=== PATIENT | male | born 1940 | race Caucasian/White ===

== ENCOUNTER 2016-07-02 11:19 | Emergency (ER) | payer MEDICARE ==
[2016-07-02] MEDS ORDERED: XYLOCAINE 1% HCL 20 ML MDV IJ ONE (11:39)
[2016-07-02] MEDS ORDERED: Adacel Vial IM ONE ×2 (11:44→11:50)
[2016-07-02] MEDS ORDERED: XYLOCAINE 1% HCL 20 ML MDV ONE (11:46)
--- NOTE | 2016-07-02 11:46 | ERPHSYRPT ---
- History of Present Illness Time Seen by Provider: 07/02/16 11:40 Source: patient Exam Limitations: no limitations Patient Subjective Stated Complaint: fell while trying to stop a moving golf cart. hit face on concrete. Triage Nursing Assessment: to room per w/c. skin w/d, color normal, resp easy. bruising and swelling noted to right side of face. lac to upper right lip with swelling and bleeding. denies loc Physician History: 76-year-old white female with history of coronary artery disease, GI bleed, hypercholesterolemia, high blood pressure, myocardial infarction, CHF Arrives with complaints that he was trying to stop a runaway golf cart he fell struck his head and face on concrete. He states he doesn't think he was knocked out but he is not sure. He currently denies neck pain he complains of a bruising and pain in the right side of his face patient also with a laceration to his upper lip. Past medical history includes coronary artery disease, hypercholesterolemia, high blood pressure, myocardial infarction, congestive heart failure, prostate problems. Past surgical history includes cardiac catheterization, appendectomy Occurred: just prior to arrival (45 minutes prior to arrival) Severity: moderate Head Injury Location: temporal (right temporal and right zygoma) Method of Injury: other (fell while chasing a runaway golf c) Loss of Consciousness: unsure Associated Symptoms: No nausea, No vomiting, No abdominal pain, No shortness of breath, No heartburn, No diaphoresis, No cough, No chills, No chest pain, No fever, No headaches, No loss of appetite (Mina Reese), No malaise, No rash, No syncope, No seizure, No weakness Allergies/Adverse Reactions: Penicillins Allergy (Mild, Verified 07/02/16 11:26) Rash Home Medications: Ascorbic Acid [Vitamin C] 1,000 mg PO DAILY 01/14/12 [History] Aspirin EC 325 mg [Ecotrin 325 MG] 325 mg PO DAILY 01/14/12 [History] Dutasteride 0.5 MG [Avodart 0.5 MG] 0.5 mg PO DAILY 01/14/12 [History] Multivitamin [Multivitamins] 1 each PO DAILY 01/14/12 [History] [place]-3 Fatty Acids/Fish Oil [Fish Oil 1,000 mg Capsule] 2,700 mg PO DAILY 01/14/12 [History] Simvastatin 40 mg [Zocor 40 mg] 40 mg PO HS 01/14/12 [History] Tamsulosin HCl 0.4 mg [Flomax 0.4 MG] 0.4 mg PO DAILY 01/14/12 [History] Ranolazine [Ranexa] 500 mg PO DAILY 08/22/14 [History] Buspirone HCl 5 mg [Buspar 5 mg] 5 mg PO BID 07/02/16 [History] Hx Tetanus, Diphtheria Vaccination/Date Given: No Hx Influenza Vaccination/Date Given: Yes Hx Pneumococcal Vaccination/Date Given: Yes - Review of Systems Constitutional: Other (pain right zygoma, right supraorbital region laterally) , No Fever, No Chills Eyes: No Symptoms, No Discharge, No Eye Pain, No Eye Redness, No Itchy, No Photophobia, No Tearing, No Vision Changes, No Double Vision, No Foreign Body Sensation, No Other Ears, Nose, & Throat: No Symptoms, Ear Pain (pain left jaw radiating to the left ear), Mouth Pain, Other (laceration upper lip appears to be abrasion external and 2.5 cm buccal surface upper lip), No Ear Discharge, No Hearing Changes, No Tinnitus, No Nose Pain, No Nose Congestion, No Nose Discharge, No Sinus Drainage, No Mouth Swelling, No Throat Swelling, No Hoarse, No Painful Swallowing, No Snoring, No Stridor Respiratory: No Cough, No Dyspnea Cardiac: No Chest Pain, No Edema, No Syncope Abdominal/Gastrointestinal: No Abdominal Pain, No Nausea, No Vomiting, No Diarrhea Genitourinary Symptoms: No Dysuria Musculoskeletal: No Back Pain, No Neck Pain Skin: Other (2 cm abrasion external skin superior to the upper lip, 2.5 cm laceration upper lip), No Rash Neurological: No Dizziness, No Focal Weakness, No Sensory Changes Psychological: No Symptoms Endocrine: No Symptoms All Other Systems: Reviewed and Negative - Past Medical History Pertinent Past Medical History: Yes Neurological History: TIA ENT History: No Pertinent History Cardiac History: Congestive Heart Failure, Coronary Artery Disease, High Cholesterol, Hypertension, Myocardial Infarction ([place]) Respiratory History: CHF Endocrine Medical History: No Pertinent History Musculoskeletal History: No Pertinent History GI Medical History: No Pertinent History History: No Pertinent History Psycho-Social History: No Pertinent History Male Reproductive Disorders: Prostate Problems - Past Surgical History Past Surgical History: Yes Neuro Surgical History: No Pertinent History Cardiac: Cardiac Catheterization Respiratory: No Pertinent History Gastrointestinal: Appendectomy Genitourinary: No Pertinent History Musculoskeletal: No Pertinent History Male Surgical History: No Pertinent History - Social History Smoking Status: Never smoker Exposure to second hand smoke: No Drug Use: none Patient Lives Alone: No - Nursing Vital Signs Nursing Vital Signs: Initial Vital Signs Temperature 97.7 F Temperature Source Oral Pulse Rate 69 Respiratory Rate 20 Blood Pressure [] 112/79 Pain Intensity 2 - Pierce Coma Score Best Eye Response (Pierce): (4) open spontaneously Best Verbal Response (Pierce): (5) oriented Best Motor Response (Pierce): (6) obeys commands [place] Total: 15 - Physical Exam General Appearance: mild distress, other (well-developed well-nourished [place] alert ecchymosis and hematoma overlying right zygoma and lateral right supraorbital ridge) Eye Exam: bilateral eye: normal inspection, PERRL, EOMI, abnormal EOM ENT Exam: airway nml, other (2.5 cm laceration buccal surface upper lip), No evidence of ENT injury Neck Exam: other (no neck tenderness) Cardiovascular/Respiratory Exam: chest non-tender, normal breath sounds, regular rate/rhythm Gastrointestinal/Abdominal Exam: soft, non tender, no distention Back Exam: normal inspection, No vertebral tenderness Extremity Exam: non-tender, normal range of motion, normal inspection Mental Status Exam: alert, oriented x 3, 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 Exam: normal hearing, normal speech, PERRL, tongue midline, No abnormal eye position, No abnormal gag reflex, No abnormal pupil position, No abnormal speech , No facial asymmetry, No facial droop, No facial paresthesias, No facial weakness, No gaze palsy, No hearing deficit (R), No hearing deficit (L), No tongue deviation to R, No tongue deviation to L Coordination/Gait Exam: normal finger to nose, normal gait, normal cerebellar function, negative Romberg's sign, No ABN nose to finger (R), No ABN nose to finger (L) Motor/Sensory Exam: no motor deficit, no sensory deficit, CN II-XII intact DTR Exam: ankle (R): 2+, ankle (L): 2+ Skin Exam: other (2 cm abrasion external surface skin superior to the upper lip , 2 cm laceration buccal surface upper lip) SpO2 Interpretation: normal (99%) SpO2: 99 Oxygen Delivery: Room Air - Course Nursing assessment & vital signs reviewed: Yes - CT Exams Head CT Interpretation: Discussed w/radiologist (head CT: Stable atrophy and degenerative micro-ischemia within normal limits. No new or acute intracranial findings) Maxillofacial Bones CT Interpretation: Discussed w/radiologist (facial bones 1. Negative for acute fractures 2. Right nasal punctate foreign body 3. Incidental paranasal sinus disease and bilateral carotid atherosclerotic disease) Cervical Spine CT Interpretation: Discussed w/radiologist (CT C-spine 1. Negative for acute fracture or subluxation. 2. Multilevel degenerative changes 3. Incidental bilateral carotid atherosclerotic disease) Ordered Tests: Active Orders 24 hr Category Date Time Status Prepare for Sutures STAT Care 07/02/16 11:39 Active Sutures STAT Care 07/02/16 11:39 Active Wound Care STAT Care 07/02/16 11:39 Active CERVICAL SPINE WO CONTRAST [CT] Stat Exams 07/02/16 11:38 Completed FACIAL BONES WO CONTRAST [CT] Stat Exams 07/02/16 11:39 Completed HEAD WITHOUT CONTRAST [CT] Stat Exams 07/02/16 11:39 Completed Medication Summary Discontinued Medications Generic Name Dose Route Start Last Admin Trade Name Freq PRN Reason Stop Dose Admin Diphtheria/Tetanus/Acell Pertussis 0.5 ml 07/02/16 11:44 07/02/16 11:54 Adacel Vial IM 07/02/16 11:45 0.5 ml .ONCE ONE Administration Diphtheria/Tetanus/Acell Pertussis Confirm 07/02/16 11:50 Adacel Vial Administered 07/02/16 11:51 Dose 0.5 ml IM .STK-MED ONE Hydrogen Peroxide Confirm 07/02/16 12:56 Peroxide 3% Administered 07/02/16 12:57 Dose 237 ml .ROUTE .STK-MED ONE Lidocaine HCl 5 ml 07/02/16 11:39 07/02/16 12:01 Xylocaine 1% Hcl 20 Ml Mdv IJ 07/02/16 11:40 5 ml STAT ONE Administration Lidocaine HCl Confirm 07/02/16 11:46 Xylocaine 1% Hcl 20 Ml Mdv Administered 07/02/16 11:47 Dose 1 ml .ROUTE .STK-MED ONE - Progress Progress: improved Progress Note: 07/02/16 13:30 76-year-old white male arrives with complaint of contusion to right supraorbital ridge right zygoma and laceration to the buccal surface of his upper lip 2.5 cm with a 2 cm abrasion to the skin superior to the upper lip. CT of the head no acute fractures no bleed CT facial bones no bleeds no fractures CT facial bones state foreign body right side of the nose no foreign bodies are seen no puncture wounds are seen at. CT neck no fractures no dislocation. Patient does have bilateral carotid arteriosclerosis. Patient appears to be stable. Suture repair 2.5 cm laceration buccal surface upper lip. Area is cleansed by the nurse using half-strength hydrogen peroxide. The area is anesthetized with 1% lidocaine. Laceration is repaired with 5 5. 0 chromic sutures. Sterile cleansing was performed to the patient's abrasion to his skin superior to his upper lip. Patient states he does have pain on the jaw facial bones are negative patient is able to bite a tongue depressor me from pulling it away Will place patient on [place] one orally every 4-6 hours as needed for pain. Patient to go to soft foods. He is advised to follow-up with his dentist. He is to place cold packs to contused areas 24-48 hours - Departure Time of Disposition: 13:33 Departure Disposition: Home Clinical Impression: Accidental fall Qualifiers: Encounter type: initial encounter Qualified Code(s): W19.XXXA - Unspecified fall, initial encounter Head contusion Qualifiers: Encounter type: initial encounter Contusion of head detail: unspecified part of head Qualified Code(s): S00.93XA - Contusion of unspecified part of head, initial encounter Contusion of face Qualifiers: Encounter type: initial encounter Qualified Code(s): S00.83XA - Contusion of other part of head, initial encounter Laceration of buccal mucosa Qualifiers: Encounter type: initial encounter Qualified Code(s): S01.512A - Laceration without foreign body of oral cavity, initial encounter Abrasion of face Qualifiers: Encounter type: initial encounter Qualified Code(s): S00.81XA - Abrasion of other part of head, initial encounter Condition: Fair Critical Care Time: No Instructions: Contusion Additional Instructions: Return home. Cold packs to contused areas 24-48 hours. Do not chew on sutures they are absorbable and will come out on their own Soft foods 48 hours. Follow-up with your dentist. Follow-up with your family doctor or return if problems or signs of infection. [place] 5/325 #12 one orally every 4-6 hours as needed for pain. Return for acute distress or for severe symptoms Prescriptions: Hydrocodone/Acetaminophen [[place] 5-325 Tablet] 1 tab PO Q4-6HPRN PRN #12 tablet PRN Reason: Pain
[2016-07-02 12:29] VITALS: BP 112/79; PULSE 69
[2016-07-02 12:36] VITALS: O2SAT 99
--- NOTE | 2016-07-02 12:43 | XRAY ---
Indication: Pain following injury with golf cart. Facial bruising. Multiple contiguous axial images obtained through the head without contrast. Comparison: January 14, 2012. Stable age-appropriate global atrophy and mild periventricular degenerative micro-ischemia bilaterally. No acute intracranial hemorrhage, abnormal extra-axial fluid collection, or mass effect. Fourth ventricle is midline without hydrocephalus. Bony calvarium intact. Visualized paranasal sinuses and mastoid air cells are clear. Impression: Stable atrophy and degenerative micro-ischemia within normal limits. No new or acute intracranial abnormalities. CT DI 51.17
--- NOTE | 2016-07-02 12:48 | XRAY ---
Indication: Pain following injury with golf cart. Facial bruising. Multiple contiguous axial images obtained through the facial bones. Sagittal and coronal reformatted images obtained. Comparison: None. Axial images negative for acute fracture or suspicious bony lesions. Right nose demonstrates tiny punctate soft tissue foreign body. Orbits including roof, [place], and floors intact. Minimal mucosal thickening in the floor of the maxillary sinuses bilaterally and lesser degree both ethmoid sinuses. Remaining paranasal sinuses and nasal passages are clear. Minimal nasal septal deviation to the right. Mild scattered carotid calcifications bilaterally. Benign tonsillar calcifications. Remaining visualized noncontrasted soft tissues unremarkable. CT head and CT cervical spine reported separately. Impression: 1. Negative for acute fracture. 2. Right nasal punctate foreign body. 3. Incidental paranasal sinus disease and bilateral carotid arteriosclerotic disease. CT DI 51.17
--- NOTE | 2016-07-02 12:53 | XRAY ---
Indication: Pain following injury with golf cart. Facial bruising. Multiple contiguous axial images obtained through the cervical spine. Sagittal and coronal reformatted images obtained. Comparison: None. Axial images negative for acute fracture, suspicious bony lesions, or canal stenosis. Minimal C3-C7 degenerative endplate spurring and mild bilateral degenerative facet hypertrophy. Sagittal and coronal reformatted images demonstrates minimal lordotic straightening. Disc spaces maintained. No acute compression fracture, subluxation, or jumped facet. Normal-appearing craniocervical junction. Mild scattered carotid calcifications bilaterally. Benign tonsillar calcifications. Right apical calcified granuloma. Remaining visualized noncontrasted soft tissues unremarkable. CT head and CT facial bones reported separately. Impression: 1. Negative for acute fracture/subluxation. 2. Multilevel degenerative changes. 3. Incidental bilateral carotid arteriosclerotic disease. CT DI 117.84
[2016-07-02] MEDS ORDERED: PEROXIDE 3% ONE (12:56)
[2016-07-02] MEDS ORDERED: BACIGUENT PACKET TP ONE (13:36)
[2016-07-02] MEDS ORDERED: PEROXIDE 3% TOP ONE (14:05)
== END 2016-07-02 13:57 | disposition home or self-care (01) ==
LOC: ED 11:19
DX: S00.93XA Contusion of unspecified part of head, initial encounter (principal); S00.83XA Contusion of other part of head, initial encounter; S01.511A Laceration without foreign body of lip, initial encounter; S00.511A Abrasion of lip, initial encounter; W18.39XA Other fall on same level, initial encounter; Y93.02 Activity, running; Y99.8 Other external cause status; I25.10 Atherosclerotic heart disease of native coronary artery without angina pectoris; E78.00 Pure hypercholesterolemia, unspecified; I65.23 Occlusion and stenosis of bilateral carotid arteries; I10 Essential (primary) hypertension; I50.9 Heart failure, unspecified; H92.02 Otalgia, left ear; R68.84 Jaw pain; I25.2 Old myocardial infarction; Z79.899 Other long term (current) drug therapy; Z86.73 Personal history of transient ischemic attack (TIA), and cerebral infarction without residual deficits
CPT/HCPCS: 70450; 70486; 72125; 90471; 90715; 96372; 99283; 99284; A9270-GY

== ENCOUNTER 2016-09-20 11:54 | Day surgery (SDC) | payer MEDICARE ==
--- NOTE | 2016-09-18 17:18 | HP ---
PROCEDURE DATE: 09/20/16 HISTORY OF PRESENT ILLNESS: The patient is a 76 y/o who has a nonhealing lesion right face with an area on his right shoulder, slightly irregular. It is increasing in size. 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 Past medical history includes heart disease. Has had myocardial infarction X 2 in the past. He is to get cardiac clearance from Dr. Ayala. CURRENT MEDICATIONS: Per the patient's list includes Benadryl, famotidine, Flomax, Lasix, lisinopril, Nitrostat PRN, potassium chloride, pravastatin, Ranexa, and trazodone. ALLERGIES: PENICILLIN. PAST SURGICAL HISTORY: Had appendectomy and skin cancer removal in the past. FAMILY HISTORY: Heart disease, cancer, diabetes. SOCIAL HISTORY: No smoking or alcohol abuse. REVIEW OF SYSTEMS: 12 systems reviewed. In addition to the above issues, he also had hyperlipidemia. Denies any chest pain or palpitations. Other systems negative or noncontributory other than above and per preadmission questionnaire. PHYSICAL EXAMINATION: GENERAL: No acute distress. HEENT: Sclerae nonicteric. On his face, he has got some nonhealing areas right face. Again, he had a prior history of carcinoma at a different location on his face in the past. NECK: No JVD. CHEST: Equal excursion. Nonlabored breathing. CVS: Regular rate and rhythm. ABDOMEN: Soft. EXTREMITIES: No significant edema. NEURO: Alert, moving extremities grossly symmetrically. IMPRESSION: NONHEALING FACE LESION AND ALSO LESION ON THE RIGHT SHOULDER. FELT HE WOULD BENEFIT FROM EXCISIONAL BIOPSY, POSSIBLE SKIN GRAFT, POSSIBLE, FLAP PENDING OPERATIVE FINDINGS. Risks and benefits explained in detail, but not limited to, bleeding; infection; risk of nonhealing of any graft or flap possibly requiring other procedures or debridement; risk of aches, pains, burning, numbness, or nonhealing; overall risk if involved margins may need wider excision and other procedures. Also understands the risk of sensory or motor nerve irritation, scar formation, or injury with weakness of chewing, drooping of lip, or weakness of eyelid and dry eyes possibly requiring other procedures. He understands and agrees to the planned procedure. Will proceed with excisional biopsy nonhealing face lesion, possible skin graft, possible flap, possible excision right shoulder lesion as an outpatient.
[~2016-09-20 11:54] MED LIST: DIPRIVAN 200 MG/20 ML IV ONE; Lactated Ringers 1,000 ML IV ONE; SUBLIMAZE 100 MCG/2 ML IV ONE; Sensorcaine 0.25% 10 ML ONE
[2016-09-20] MEDS ORDERED: Lactated Ringers 1,000 ML IV SCH (12:30)
[2016-09-20 12:44] LABS: ANION GAP 14.6 MEQ/L (5-15); Carbon Dioxide 23.9 mEq/L (21-32); Potassium 4.5 mEq/L (3.5-5.1)
[2016-09-20] MEDS ORDERED: Levofloxacin 500MG/100ML D5W 500 MG/100 ML BAG IV ONE (14:45)
[2016-09-20] MEDS ORDERED: BACIGUENT 30 GM ONE (15:15)
[2016-09-20] MEDS ORDERED: Lactated Ringers 1,000 ML IV ONE (15:24)
[2016-09-20] MEDS ORDERED: Zofran 4 MG/2 ML VIAL ONE (15:58)
[2016-09-20] MEDS ORDERED: MORPHINE SULFATE 10 MG/ML ONE (15:58)
[2016-09-20 16:33] VITALS: O2SAT 95
[2016-09-20 17:09] VITALS: BP 136/85; PULSE 67
--- NOTE | 2016-09-21 11:17 | OP ---
SURGERY DATE: 09/20/16 SURGERY TIME: 1425 PREOPERATIVE DIAGNOSIS: 1. NONHEALING LEFT FACE LESIONS X 2. POSTOPERATIVE DIAGNOSIS: 1. NONHEALING LEFT FACE LESIONS X 2. PROCEDURE: 1. Excisional biopsy 2 nonhealing left face lesions excised in block (approximately 4 cm with margins). 2. Complex closure with rotational advancement flap. SURGEON: Dr. Joey Conde. ANESTHESIA: General. ESTIMATED BLOOD LOSS: Minimal. INDICATIONS: As noted above. Risks and benefits explained in detail, but not limited to. Consent was obtained. DESCRIPTION OF PROCEDURE AND FINDINGS: Site was confirmed with the patient in the holding. Had an irregular pigmented darker spot adjacent to an ulcerated area on his left face. Corinne these would benefit from excising in block. He understood he would likely need an advancement or rotational flap or coverage. He was taken to the OR. General anesthesia was induced. The left face and neck were prepped and draped in the usual sterile fashion. After official time-out, no disagreement in planned procedure. Marking out to normal-appearing skin around this area, dissection was carried. This resulted in about a 4 cm specimen with the 2 lesions within the specimen with margins dissecting out to normal-appearing subcutaneous tissue beneath. Once this was accomplished, got enough loose skin further down on the lower part of his neck that could be mobilized upward to form a rotational flap with the borders angled and then carefully cut and mobilized upward. It was advanced upward and rotated around. The angles then cut and trimmed and closed with interrupted 3-0 Vicryl closing the deep dermis/subq. Skin closed with 5-0 Prolene in a running fashion. Good hemostasis was noted. 0.25% Marcaine local injected along the area. Nice tension-free viable rotational flap. The corners had been trimmed. There were no immediate complications. The findings discussed with the family out in the waiting area. Transferred to recovery in stable condition. This took quite some time to rotate and advance this flap, but was accomplished as carefully as possible. Appeared to be a nice, tension-free, viable flap.
== END 2016-09-20 17:19 | disposition home or self-care (01) ==
LOC: SDC 11:54
PROVIDERS: ATTEND Surgery
PROC: 0HB1XZX Excision of Face Skin, External Approach, Diagnostic (ICD-10-PCS; principal; 2016-09-20)
DX: L82.0 Inflamed seborrheic keratosis (principal); L98.8 Other specified disorders of the skin and subcutaneous tissue; Z85.828 Personal history of other malignant neoplasm of skin; I51.9 Heart disease, unspecified; I25.2 Old myocardial infarction; Z79.899 Other long term (current) drug therapy; I10 Essential (primary) hypertension; E78.5 Hyperlipidemia, unspecified; I25.10 Atherosclerotic heart disease of native coronary artery without angina pectoris
CPT/HCPCS: 00300; 36415; 80048; 88305; 99100; J2270; J2405; J2704; J3010; A9270-GY

== ENCOUNTER 2019-01-25 10:41 | Emergency (ER) | payer MEDICARE ==
--- NOTE | 2019-01-25 10:56 | ERPHSYRPT ---
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 pt had lawnmower suspended into air while working on it. the lawnmower then fell directly onto his bilat ant thighs. he is able to ambulate but they are painful and there is obvious swelling present Method of Injury: direct blow Occurred: just prior to arrival Quality: constant, aching Severity of Pain-Max: moderate Severity of Pain-Current: moderate Lower Extremities Pain: thigh: bilateral Modifying Factors: Improves With: movement Associated Symptoms: none Allergies/Adverse Reactions: Penicillins Allergy (Mild, Verified 01/25/19 11:01) Rash Home Medications: Dutasteride 0.5 MG [Avodart 0.5 MG] 0.5 mg PO DAILY 01/14/12 [History] Multivitamin [Multivitamins] 1 each PO DAILY 01/14/12 [History] Tamsulosin HCl 0.4 mg [Flomax 0.4 MG] 0.4 mg PO DAILY 01/14/12 [History] Ranolazine [Ranexa] 500 mg PO BID 08/22/14 [History] Furosemide 20 mg [Lasix 20 mg] 20 mg PO DAILY 09/06/16 [History] Lisinopril [Zestril] 2.5 mg PO DAILY 09/06/16 [History] Nitroglycerin 0.4 mg Tablet [Nitrostat 0.4 MG Tablet] 0.4 mg SL DIRECTIONS UNKNOWN PRN 09/06/16 [History] Potassium Chloride [Klor-Con Sprinkle] 10 meq PO DAILY 09/06/16 [History] Pravastatin Sodium 40 mg PO DAILY 09/06/16 [History] Trazodone HCl 50 mg [Desyrel 50 mg] 50 mg PO DAILY 09/06/16 [History] Aspirin EC 81 mg [Ecotrin 81 mg] 81 mg PO DAILY 01/25/19 [History] Hx Tetanus, Diphtheria Vaccination/Date Given: No Hx Influenza Vaccination/Date Given: Yes Hx Pneumococcal Vaccination/Date Given: Yes - Review of Systems Constitutional: No Symptoms Eyes: No Symptoms Ears, Nose, & Throat: No Symptoms Respiratory: No Symptoms Cardiac: No Symptoms Abdominal/Gastrointestinal: No Symptoms Genitourinary Symptoms: No Symptoms Musculoskeletal: Injury (bilat thighs) Skin: Other (abrasion bilat thighs) Neurological: No Symptoms Psychological: No Symptoms Endocrine: No Symptoms Hematologic/Lymphatic: No Symptoms Immunological/Allergic: No Symptoms All Other Systems: Reviewed and Negative - Past Medical History Pertinent Past Medical History: Yes Neurological History: TIA ENT History: No Pertinent History Cardiac History: Congestive Heart Failure, Coronary Artery Disease, High Cholesterol, Hypertension, Myocardial Infarction ([place]) Respiratory History: CHF Endocrine Medical History: No Pertinent History Musculoskeletal History: No Pertinent History GI Medical History: GI Bleed History: No Pertinent History Psycho-Social History: No Pertinent History Male Reproductive Disorders: Prostate Problems Other Medical History: pt has hx of skin cancer - Past Surgical History Past Surgical History: Yes Neuro Surgical History: No Pertinent History Cardiac: Cardiac Catheterization Respiratory: No Pertinent History Gastrointestinal: Appendectomy Genitourinary: No Pertinent History Musculoskeletal: No Pertinent History Male Surgical History: No Pertinent History - Social History Smoking Status: Never smoker Exposure to second hand smoke: No Drug Use: none Patient Lives Alone: No - Nursing Vital Signs Nursing Vital Signs: Initial Vital Signs Temperature 97.6 F 01/25/19 10:52 Pulse Rate 70 01/25/19 10:52 Blood Pressure 143/88 01/25/19 10:52 O2 Sat by Pulse Oximetry 99 01/25/19 10:52 Pain Scale Pain Intensity 6 - Physical Exam General Appearance: mild distress, alert, anxiety Eyes, Ears, Nose, Throat Exam: normal ENT inspection, moist mucous membranes Neck Exam: normal inspection, non-tender, supple, full range of motion Cardiovascular/Respiratory Exam: chest non-tender Gastrointestinal/Abdominal Exam: non-tender Back Exam: normal inspection, normal range of motion, No CVA tenderness, No vertebral tenderness Hips Exam: bilateral: non-tender, normal inspection, normal range of motion, no evidence of injury Legs Exam: bilateral leg: abrasions, soft tissue tenderness, swelling, other ( subq hematoma) Knees Exam: bilateral knee: non-tender, normal inspection, normal range of motion, no evidence of injury Ankle Exam: bilateral ankle: non-tender, normal inspection, normal range of motion, no evidence of injury Foot Exam: bilateral foot: non-tender, normal inspection, normal range of motion , no evidence of injury Neuro/Tendon Exam: normal sensation, normal motor functions Mental Status Exam: alert, oriented x 3, cooperative Skin Exam: abrasion (bilat ant thigh) SpO2 Interpretation: normal O2 Delivery: Room Air - Course Nursing assessment & vital signs reviewed: Yes Ordered Tests: Active Orders 24 hr Category Date Time Status LOWER EXTREMITY WO CONTRAST [CT] Stat Exams 01/25/19 10:57 Completed RECONSTRUCTION [CT] Stat Exams 01/25/19 10:57 Completed Medication Summary Discontinued Medications Generic Name Dose Route Start Last Admin Trade Name Shannan PRN Reason Stop Dose Admin Morphine Sulfate 4 mg 01/25/19 11:38 01/25/19 11:41 Morphine Sulfate 4 Mg Inj IM 01/25/19 11:39 4 mg STAT ONE Administration Morphine Sulfate Confirm 01/25/19 11:39 Morphine Sulfate 4 Mg Inj Administered 01/25/19 11:40 Dose 4 mg .ROUTE .STK-MED ONE Ondansetron HCl 4 mg 01/25/19 11:39 01/25/19 11:40 Zofran Odt 4 Mg PO 01/25/19 11:40 4 mg STAT ONE Administration Ondansetron HCl Confirm 01/25/19 11:39 Zofran Odt 4 Mg Administered 01/25/19 11:40 Dose 4 mg .ROUTE .STK-MED ONE - Progress Progress: improved, re-examined Progress Note: 01/25/19 13:11 ct bilat femurs-bilat large hematomas without fx of bony elements Counseled pt/family regarding: diagnosis, need for follow-up, rad results - Departure Departure Disposition: Home Clinical Impression: Traumatic hematoma of left thigh, Traumatic hematoma of right thigh, Abrasions of multiple sites Condition: Stable Critical Care Time: No Referrals: SULLY SMITH [Primary Care Provider] - Additional Instructions: stop aspirin, stop any blood thinning medication. keep abrasion sites clean daily with soap and water. cover abrasion sites with antibiotic ointment daily. ice pack to areas 3 times daily for 3 days. follow up with primary doctor for further management
[2019-01-25] MEDS ORDERED: MORPHINE SULFATE 4 MG INJ IM ONE (11:38)
[2019-01-25] MEDS ORDERED: ZOFRAN ODT 4 MG ONE (11:39)
[2019-01-25] MEDS ORDERED: ZOFRAN ODT 4 MG PO ONE (11:39)
[2019-01-25] MEDS ORDERED: MORPHINE SULFATE 4 MG INJ ONE (11:39)
--- NOTE | 2019-01-25 12:20 | XRAY ---
Indication: Pain/hematoma following injury. Multiple contiguous axial images obtained through the left mid to distal thigh without contrast. Two-dimensional sagittal and coronal reformatted images obtained. Comparison: None Anterior medial mid thigh demonstrates large subcutaneous hematoma measuring 4.9 x 8.9 x 11 cm in greatest AP, transverse, and CC projections with adjacent cutaneous/subcutaneous soft tissue swelling. No acute fracture, suspicious bony lesions, or radiopaque foreign body. Incidental moderate scattered vascular calcifications and moderate/advanced tricompartmental knee degenerative changes with small nonspecific effusion. Impression: 1. Large hematoma without fracture. 2. 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 CTDI 28.07
--- NOTE | 2019-01-25 12:24 | XRAY ---
Indication: Pain/hematoma following injury. Multiple contiguous axial images obtained through the right mid to distal thigh without contrast. Two-dimensional sagittal and coronal reformatted images obtained. Comparison: None Anterior medial mid thigh demonstrates large subcutaneous hematoma measuring 3.9 x 7.9 x 9.2 cm in greatest AP, transverse, and CC projections with adjacent cutaneous/subcutaneous soft tissue swelling. No acute fracture, suspicious bony lesions, or radiopaque foreign body. Incidental moderate scattered vascular calcifications and moderate/advanced tricompartmental knee degenerative changes with small nonspecific effusion. Impression: 1. Large hematoma without fracture. 2. 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 CTDI 28.07
[2019-01-25 13:15] VITALS: BP 119/77; PULSE 64; O2SAT 99
[2019-01-25] MEDS ORDERED: PERCOCET TABLET 5/325MG PO STA (13:25)
[2019-01-25] MEDS ORDERED: BACIGUENT PACKET ONE (13:27)
[2019-01-25] MEDS ORDERED: PERCOCET TABLET 5/325MG ONE (13:28)
== END 2019-01-25 13:39 | disposition home or self-care (01) ==
LOC: ED 10:41
DX: S70.12XA Contusion of left thigh, initial encounter (principal); S70.11XA Contusion of right thigh, initial encounter; S70.312A Abrasion, left thigh, initial encounter; S70.311A Abrasion, right thigh, initial encounter; W20.8XXA Other cause of strike by thrown, projected or falling object, initial encounter; Z79.899 Other long term (current) drug therapy; I50.9 Heart failure, unspecified; I25.10 Atherosclerotic heart disease of native coronary artery without angina pectoris; E78.00 Pure hypercholesterolemia, unspecified; I10 Essential (primary) hypertension; I25.2 Old myocardial infarction
CPT/HCPCS: 73700; 76376; 96372; 99284; J2270; Q0162; A9270-GY

== ENCOUNTER 2020-10-17 20:38 | Emergency (ER) | payer MEDICARE ==
--- NOTE | 2020-10-17 21:06 | ERPHSYRPT ---
- History of Present Illness Time Seen by Provider: 10/17/20 21:06 Historian: patient, family Exam Limitations: no limitations Patient Subjective Stated Complaint: C/O diarrhea since Tuesday. Triage Nursing Assessment: Abdomen soft, non-distended. Bowel sounds present. Patient denies any N/V. Denies any abdominal pain but does state his belly cram ps at times with the diarrhea. Denies flank pain. Physician History: This is an 80-year-old white male with a history of TIAs, CHF, coronary disease, elevated cholesterol, hypertension, myocardial infarction/coronary artery disease who presents with 5-day history of intermittent diarrhea and abdominal cramping. The cramping is generalized. He only has the pain when he has the cramping and the cramping is followed by diarrhea. He has been using [id number] Imodium. Patient has lost 60 pounds in last 2 years. He is doing this by changing his diet increase in activity. More recently he has increased the protein intake in his diet and increased his exercise program. He had a colonoscopy a few years ago this was negative per his report. Patient denies chest pain. He denies shortness of breath. He has had, in the distant past, some rectal bleeding. When they did the colonoscopy they could not find the bleeding site. He is not on any anticoagulation therapy. Patient states he is not on any new medications. In fact he has been taken off of several of his medications because of his significant weight loss. Patient has not had any vomiting Timing/Duration: day(s) (5) Activities at Onset: none Quality: cramping Abdominal Pain Onset Location: generalized abdomen Pain Radiation: no radiation Severity of Pain-Max: moderate (When there is cramping present) Severity of Pain-Current: none (Currently) Modifying Factors: Improves With: nothing Associated Symptoms: denies symptoms Previous symptoms: no prior history Allergies/Adverse Reactions: Penicillins Allergy (Mild, Verified 10/17/20 21:06) Rash Home Medications: Dutasteride 0.5 MG [Avodart 0.5 MG] 0.5 mg PO DAILY 01/14/12 [History] Multivitamin [Multivitamins] 1 each PO DAILY 01/14/12 [History] Tamsulosin HCl 0.4 mg [Flomax 0.4 MG] 0.4 mg PO DAILY 01/14/12 [History] Ranolazine [Ranexa] 500 mg PO BID 08/22/14 [History] Furosemide 20 mg [Lasix 20 mg] 20 mg PO DAILY 09/06/16 [History] Nitroglycerin 0.4 mg Tablet [Nitrostat 0.4 MG Tablet] 0.4 mg SL DIRECTIONS UNKNOWN PRN 09/06/16 [History] Potassium Chloride [Klor-Con Sprinkle] 10 meq PO DAILY 09/06/16 [History] Pravastatin Sodium 40 mg PO DAILY 09/06/16 [History] Trazodone HCl 50 mg [Desyrel 50 mg] 50 mg PO DAILY 09/06/16 [History] lisinopriL [Zestril] 2.5 mg PO DAILY 09/06/16 [History] Aspirin EC 81 mg [Ecotrin 81 mg] 81 mg PO DAILY 01/25/19 [History] Hx Tetanus, Diphtheria Vaccination/Date Given: No Hx Influenza Vaccination/Date Given: Yes Hx Pneumococcal Vaccination/Date Given: Yes Immunizations Up to Date: Yes Travel Risk - International Travel Have you traveled outside of the country in past 3 weeks: No - Coronavirus Screening Are you exhibiting any of the following symptoms?: Yes Symptoms: Vomiting/Diarrhea Close contact with a COVID-19 positive Pt in past 14-21 Days: No - Vaccine Status Have you recieved a Covid-19 vaccination: Yes Training 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: Moderna - Vaccination Dates Date of 2cond Vaccination (if applicable): 04/12/2020 - Review of Systems Constitutional: No Symptoms Eyes: No Symptoms Ears, Nose, & Throat: No Symptoms Respiratory: No Symptoms Cardiac: No Symptoms Abdominal/Gastrointestinal: Abdominal Pain (Generalized cramping), Diarrhea, No Nausea, No Vomiting Genitourinary Symptoms: No Symptoms Musculoskeletal: No Symptoms Skin: No Symptoms Neurological: No Symptoms Psychological: No Symptoms Endocrine: No Symptoms Hematologic/Lymphatic: No Symptoms Immunological/Allergic: No Symptoms All Other Systems: Reviewed and Negative - Past Medical History Pertinent Past Medical History: Yes Neurological History: TIA ENT History: No Pertinent History Cardiac History: Congestive Heart Failure, Coronary Artery Disease, High Cholesterol, Hypertension, Myocardial Infarction ([place]) Respiratory History: CHF Endocrine Medical History: No Pertinent History Musculoskeletal History: No Pertinent History GI Medical History: GI Bleed History: Other Psycho-Social History: No Pertinent History Male Reproductive Disorders: Prostate Problems Other Medical History: pt has hx of skin cancer, BPH, Hyperlipidemia - Past Surgical History Past Surgical History: Yes Neuro Surgical History: No Pertinent History Cardiac: Cardiac Catheterization Respiratory: No Pertinent History Gastrointestinal: Appendectomy Genitourinary: No Pertinent History Musculoskeletal: No Pertinent History Male Surgical History: No Pertinent History - Social History Smoking Status: Never smoker Exposure to second hand smoke: No Drug Use: none Patient Lives Alone: No - Nursing Vital Signs Nursing Vital Signs: Initial Vital Signs Temperature 96.8 F 10/17/20 20:58 Pulse Rate 74 10/17/20 20:58 Respiratory Rate 20 10/17/20 20:58 Blood Pressure 117/73 10/17/20 20:58 O2 Sat by Pulse Oximetry 98 10/17/20 20:58 Pain Scale Pain Intensity 0 - Physical Exam General Appearance: no apparent distress, alert, anxiety Eye Exam: PERRL/EOMI, eyes nml inspection Ears, Nose, Throat Exam: normal ENT inspection, moist mucous membranes Neck Exam: normal inspection, non-tender, supple, full range of motion Respiratory Exam: normal breath sounds, lungs clear, airway intact, No chest tenderness, No respiratory distress Cardiovascular Exam: regular rate/rhythm, normal heart sounds, normal peripheral pulses Gastrointestinal/Abdomen Exam: soft, normal bowel sounds, No tenderness, No distention, No mass, No guarding, No pulsatile mass Rectal Exam: not done Back Exam: normal inspection, normal range of motion, No CVA tenderness Extremity Exam: normal inspection, normal range of motion, pelvis stable Neurologic Exam: alert, oriented x 3, cooperative, porcelain mixer II-XII nml as tested, nor mal mood/affect, nml cerebellar function, nml station & gait, sensation nml Skin Exam: normal color, warm, dry Lymphatic Exam: No adenopathy SpO2 Interpretation: normal O2 Delivery: Room Air - Course Nursing assessment & vital signs reviewed: Yes Ordered Tests: Active Orders 24 hr Category Date Time Status IV Insertion STAT Care 10/17/20 22:36 Active ABDOMEN AND PELVIS W/0 CONTRAS [CT] Stat Exams 10/17/20 23:17 Taken AMYLASE Stat Lab 10/17/20 23:05 Completed BLOOD CULTURE Stat Lab 10/17/20 23:05 Ordered CBC W DIFF Stat Lab 10/17/20 23:05 Completed CMP Stat Lab 10/17/20 23:05 Completed LIPASE Stat Lab 10/17/20 23:05 Completed Lactic Acid Stat Lab 10/17/20 23:15 Completed UA W/RFX UR CULTURE Stat Lab 10/17/20 22:36 Ordered Medication Summary Generic Name Dose Route Start Last Admin Trade Name Shannan PRN Reason Stop Dose Admin Sodium Chloride 1,000 mls @ 250 mls/hr 10/17/20 22:45 10/17/20 23:43 Sodium Chloride 0.9% 1000 Ml IV 11/16/20 22:44 250 mls/hr .Q4H YASEMIN Administration Lab/Rad Data: Laboratory Result Diagrams 10/17/20 23:05 10/17/20 23:05 Laboratory Results 10/17/20 10/17/20 10/17/20 Range/Units 23:15 23:05 23:05 WBC 8.4 (4.0-10.5) K/mm3 RBC 3.32 L (4.1-5.6) M/mm3 Hgb 11.1 L (12.5-18.0) gm/dl Hct 35.4 L (42-50) % MCV 106.6 H (78-100) fl MCH 33.4 H (26-32) pg MCHC 31.4 L (32-36) g/dl RDW 14.0 (11.5-14.0) % Plt Count 215 (150-450) K/mm3 MPV 9.9 (7.5-11.0) fl Gran % 74.0 H (36.0-66.0) % Eos # (Auto) 0.11 (0-0.5) Absolute Lymphs (auto) 1.12 (1.0-4.6) Absolute Monos (auto) 0.93 (0.0-1.3) Lymphocytes % 13.3 L (24.0-44.0) % Monocytes % 11.0 (0.0-12.0) % Eosinophils % 1.3 (0.00-5.0) % Basophils % 0.4 (0.0-0.4) % Absolute Granulocytes 6.25 (1.4-6.9) Basophils # 0.03 (0-0.4) Sodium 139 (137-145) mmol/L Potassium 4.1 (3.5-5.1) mmol/L Chloride 104 (98-107) mmol/L Carbon Dioxide 25 (22-30) mmol/L Anion Gap 14.7 (5-15) MEQ/L BUN 25 H (9-20) mg/dL Creatinine 1.85 H (0.66-1.25) mg/dL Estimated GFR 37.6 ML/MIN Glucose 112 H (74-106) mg/dL Lactic Acid 1.2 (0.4-2.0) Calcium 10.1 (8.4-10.2) mg/dL Total Bilirubin 0.60 (0.2-1.3) mg/dL AST 26 (17-59) U/L ALT 17 (0-50) U/L Alkaline Phosphatase 38 (38-126) U/L Serum Total Protein 6.9 (6.3-8.2) g/dL Albumin 4.1 (3.5-5.0) g/dL Amylase 69 (30-110) U/L Lipase 92 (23-300) U/L - Progress Progress: improved, re-examined Progress Note: 10/18/20 00:08 CAT scan of the abdomen and pelvis without contrast shows bowel wall thickening of the colon with surrounding edema. Likely colitis Counseled pt/family regarding: lab results, diagnosis, need for follow-up, rad results - Departure Departure Disposition: Home Clinical Impression: Colitis Condition: Stable Critical Care Time: No Referrals: SULLY SMITH [Primary Care Provider] - Additional Instructions: Stop your protein diet. Stop using the Imodium. Drink plenty of clear liquids. Take your antibiotics as prescribed. Follow-up with your primary care physician next week. Prescriptions: Metronidazole 500 mg [Flagyl 500 MG] 500 mg PO TID #21 tablet
[2020-10-17] MEDS ORDERED: Sodium Chloride 0.9% 1000 ML 1,000 ML IV SCH (22:45)
[2020-10-17 23:16] LABS: Absolute Neutrophil Ct (ANC) 6.25 (1.4-6.9); BASOPHIL % 0.4 % (0.0-0.4); Basophil (Absolute #) 0.03 (0-0.4); Eosinophil % 1.3 % (0.00-5.0); Eosinophil (Absolute #) 0.11 (0-0.5); Hematocrit 35.4 % (42-50); Hemoglobin 11.1 gm/dl (12.5-18.0); Lymphocyte (Absolute #) 1.12 (1.0-4.6); Lymphocytes % 13.3 % (24.0-44.0); Mean Cell Volume 106.6 fl (78-100); Mean Corpuscular Hemoglobin 33.4 pg (26-32); Mean Corpuscular Hgb Concent. 31.4 g/dl (32-36); Mean Platelet Volume 9.9 fl (7.5-11.0); Monocyte (Absolute #) 0.93 (0.0-1.3); Platelet Count 215 K/mm3 (150-450); Red Blood Count 3.32 M/mm3 (4.1-5.6); White Blood Count 8.4 K/mm3 (4.0-10.5)
[2020-10-17 23:27] LABS: ALBUMIN 4.1 g/dL (3.5-5.0); ANION GAP 14.7 MEQ/L (5-15); BILIRUBIN,TOTAL 0.6 mg/dL (0.2-1.3); Calcium 10.1 mg/dL (8.4-10.2); Creatinine 1 1.85 mg/dL (0.66-1.25); EST GLOMERULAR FILTRATION RATE 37.6 ML/MIN; Potassium 4.1 mmol/L (3.5-5.1); Total Protein 6.9 g/dL (6.3-8.2)
[2020-10-17] MEDS ORDERED: Sodium Chloride 0.9% 1000 ML 1,000 ML ONE (23:41)
[2020-10-17 23:52] VITALS: O2SAT 98
[2020-10-18] MEDS ORDERED: Flagyl 500 MG PO ONE (00:11)
[2020-10-18] MEDS ORDERED: Flagyl 500 MG ONE (00:13)
[2020-10-18 00:41] LABS: Appearance CLEAR (CLEAR); Bilirubin NEGATIVE (NEGATIVE); Blood NEGATIVE Ery/ul (0-5); Glucose NEGATIVE (NEGATIVE); Ketones NEGATIVE (NEGATIVE); Leukocyte Esterase NEGATIVE (NEGATIVE); Mucus SLIGHT /HPF (NEGATIVE); Nitrite NEGATIVE (NEGATIVE); Protein,Urine Dip NEGATIVE (Negative); RBC 0-2 /HPF (0-2); Urobilinogen NEGATIVE mg/dL (0-1); WBC 0-2 /HPF (0-5)
[2020-10-18 01:47] VITALS: BP 112/66; PULSE 70
[2020-10-18 02:31] LABS: Adenovirus F 40/41 NEGATIVE (NEGATIVE); Astrovirus NEGATIVE (NEGATIVE); C. Difficile Organism NEGATIVE (NEGATIVE); Campylobacter NEGATIVE (NEGATIVE); Cryptosporidium NEGATIVE (NEGATIVE); Cyclospora cayentanensis NEGATIVE (NEGATIVE); Entamoeaba histolytica NEGATIVE (NEGATIVE); Enteroaggregative E.coli NEGATIVE (NEGATIVE); Enteropathogenic E.coli NEGATIVE (NEGATIVE); Enterotoxigenic E.coli NEGATIVE (NEGATIVE); Giardia lamblia NEGATIVE (NEGATIVE); Norovirus GI/GII NEGATIVE (NEGATIVE); Plesiomonas shigelloides NEGATIVE (NEGATIVE); Rotavirus A NEGATIVE (NEGATIVE); Salmonella NEGATIVE (NEGATIVE); Sapovirus NEGATIVE (NEGATIVE); Shiga-like toxin prod.E.coli NEGATIVE (NEGATIVE); Vibrio NEGATIVE (NEGATIVE); Vibrio cholerae NEGATIVE (NEGATIVE); Yersinia enterocolitica NEGATIVE (NEGATIVE)
--- NOTE | 2020-10-18 06:00 | XRAY ---
Indication: Diarrhea and cramping. Multiple contiguous axial images obtained through the abdomen and pelvis without contrast. Comparison: None Lung bases hyperinflated with minimal bibasilar dependent atelectasis. No infiltrate or effusion. Heart not enlarged. Noncontrasted stomach and bowel loops appear nonobstructed. Appendectomy reported. Colon demonstrates mild circumferential wall thickening with mild descending pericolonic stranding favoring colitis. No free fluid/air. Urinary bladder markedly distended concerning for outlet obstruction versus neurogenic bladder. A few splenic calcified granulomas. Remaining liver, gallbladder, pancreas, adrenal glands, kidneys, and ureters are unremarkable for noncontrast exam. Mild scattered aortoiliac calcifications without AAA. Osseous structures intact with mild/moderate degenerative changes throughout the spine. Impression: 1. Mild colonic bowel wall thickening with descending colonic stranding favoring colitis. 2. Distended urinary bladder. Rule out elevated obstruction versus neurogenic bladder. 3. 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 Comment: Preliminary interpretation made by [facility]. No critical discrepancy.
== END 2020-10-18 01:47 | disposition home or self-care (01) ==
LOC: ED 20:38
DX: K52.9 Noninfective gastroenteritis and colitis, unspecified (principal); R19.7 Diarrhea, unspecified
CPT/HCPCS: 0097U; 36000; 36415; 74176; 80053; 81001; 82150; 83605; 83690; 85025; 87040; 99284; A9270-GY